=== PATIENT | male | born 1980 | race Caucasian/White ===

== ENCOUNTER 2020-08-14 11:36 | Inpatient (IN) ==
[2020-08-14 12:51] LABS: ABS Basophils 0.2 10^3/ul (0-0.2); ABS Eosinophils 0.2 10^3/ul (0-0.6); ABS Lymphocytes 3.1 10^3/ul (1.0-4.8); ABS Monocytes 0.7 10^3/ul (0-0.8); ABS Neutrophils 3.6 10^3/ul (1.5-7.7); Eosinophil % 2.3 %; Hematocrit 41 % (42-52); Hemoglobin 13.5 g/dL (14.0-18.0); Lymphocyte % 40.2 %; Mean Corpuscular HGB Conc 33 g/dL (31-36); Mean Corpuscular Hemoglobin 30 pg (27-31); Mean Corpuscular Volume 91 fL (80-94); Mean Platelet Volume 8.6 fL (7.4-10.4); Nucleated Red Blood Cells % 0.1; Platelet Count 253 10^3/uL (150-450); Red Blood Count 4.48 10^6 /uL (4.18-5.48); Red Cell Distribution Width 13 % (10-15); White Blood Count 7.8 10^3/uL (3.5-10.8)
[2020-08-14 13:11] LABS: ALT 24 U/L (7-52); AST 16 U/L (13-39); Albumin 4.1 g/dL (3.2-5.2); Albumin/Globulin Ratio 2.1 (1-3); Alkaline Phosphatase 52 U/L (34-104); Anion Gap 4 mmol/L (2-11); Blood Urea Nitrogen 17 mg/dL (6-24); CO2 Carbon Dioxide 30 mmol/L (22-32); Calcium 8.7 mg/dL (8.6-10.3); Chloride 106 mmol/L (101-111); EGFR African American 108.9 (>60); Glucose 91 mg/dL (70-100); Potassium 3.9 mmol/L (3.5-5.0); Sodium 140 mmol/L (135-145); Total Protein 6.1 g/dL (6.4-8.9)
[2020-08-14 13:32] LABS: Alcohol, S < 10 mg/dL (<10); Salicylate < 2.50 mg/dL (<30)
[2020-08-14 13:36] LABS: TSH Ultra Thyroid Stim Horm 3.34 mcIU/mL (0.34-5.60)
[2020-08-14 13:57] LABS: Acetaminophen < 15 mcg/mL
[2020-08-14 16:14] LABS: Urine Benzodiazepine Screen None Detected (None Detect); Urine Cannabinoids Screen Presumptive Positive (None Detect); Urine Opiates Screen None Detected (None Detect)
[2020-08-14 16:22] LABS: Urine Appearance Clear; Urine Bilirubin Negative (Negative); Urine Blood Negative (Negative); Urine Color Yellow; Urine Glucose Negative (Negative); Urine Ketones Negative (Negative); Urine Nitrite Negative (Negative); Urine Protein Negative (Negative); Urine Specific Gravity 1.011 (1.002-1.030); Urine Urobilinogen Negative (Negative)
[2020-08-14] MEDS ORDERED: Al Hydrox/Mg Hydrox/Simet LIQ 30 ML UDC PO PRN (22:32)
[2020-08-15] MEDS: Vitamin THERAPEUTIC TAB PO SCH (07:59)
[2020-08-16 08:15] LABS: HDL Cholesterol 53.9 mg/dL
[2020-08-16 09:20] VITALS: BP 116/62
[2020-08-16] MEDS: Vitamin THERAPEUTIC TAB PO SCH (10:12)
== END 2020-08-16 11:47 | disposition home or self-care (01) | DRG 885 ==
LOC: ED 11:36 → BSU 19:41
PROVIDERS: ADMIT Psychiatry & Neurology Psychiatry; ATTEND Psychiatry & Neurology Psychiatry